=== PATIENT | male | born 1965 | race Caucasian/White ===

== ENCOUNTER 2017-01-07 09:47 | Emergency (ER) | payer OTHER ==
[~2017-01-07] VITALS: Ht 175.3 cm; Wt 90.9 kg
[2017-01-07 09:53] VITALS: BP 139/83
--- NOTE | 2017-01-07 09:58 | NUR ---
Patient ambulated to bed 3. RN evaluating patient at bedside.
--- NOTE | 2017-01-07 10:04 | NUR ---
51 YO MALE C/O POSSIBLE BUG BITES POST GERDENING ON LEFT HAND, WOUNDS ARE OPEN ON LT 5TH, 3RD AND 1ST DIGIT, SWELLING SEEN. PT STATES THERE HAS BEEN SOME PUS DICHARGE FROM 5TH DIGIT, PAIN TO LT HAND IS 7/10, ALSO HAS RASH ON LT UPPER ARM WITH ITCHING X2D.
--- NOTE | 2017-01-07 10:52 | NUR ---
Dr. Chen evaluating patient at bedside.
[2017-01-07 11:03] VITALS: BP 126/85
--- NOTE | 2017-01-07 11:04 | NUR ---
Patient discharged with v/s stable. Written and verbal after care instructions given and explained. Patient alert, oriented and verbalized understanding of instructions. Ambulatory with steady gait. All questions addressed prior to discharge. ID band removed. Patient advised to follow up with PMD. Rx of BACTRIM, KEFLEX, MOTRIN given. Patient educated on indication of medication including possible reaction and side effects. Opportunity to ask questions provided and answered.
== END 2017-01-07 11:04 | disposition home or self-care (01) ==
LOC: MED 09:47
DX: L03.012 Cellulitis of left finger (principal)
CPT/HCPCS: 99283

== ENCOUNTER 2017-09-22 11:29 | Emergency (ER) | payer OTHER ==
[~2017-09-22] VITALS: Ht 175.3 cm; Wt 72.6 kg
[2017-09-22 11:37] VITALS: BP 123/65
--- NOTE | 2017-09-22 11:41 | NUR ---
PT AMBULATED TO ER CHAIR C
--- NOTE | 2017-09-22 11:42 | NUR ---
PT TRANSFERRED TO ER BED 01 Addendum: 09/22/17 at 1143 by MARA PT TRANSFERRED TO ER BED 03
--- NOTE | 2017-09-22 11:45 | NUR ---
52y/ m bib self c/o left upper leg numbness/ tingling/ pain x 1 day. patient denies any recent injury. ER MD MADE AWARE OF PT STATUS.
[2017-09-22 11:51] VITALS: BP 123/65
--- NOTE | 2017-09-22 11:51 | NUR ---
Patient discharged with v/s stable. Written and verbal after care instructions given and explained. Patient alert, oriented and verbalized understanding of instructions. with steady gait. All questions addressed prior to discharge. ID band removed. Patient advised to follow up with PMD. Rx of benadryl, bactrium ds given. Patient educated on indication of medication including possible reaction and side effects. Opportunity to ask questions provided and answered.
== END 2017-09-22 11:51 | disposition home or self-care (01) ==
LOC: MED 11:29
DX: S30.860A Insect bite (nonvenomous) of lower back and pelvis, initial encounter (principal); W57.XXXA Bitten or stung by nonvenomous insect and other nonvenomous arthropods, initial encounter; Y93.55 Activity, bike riding; Y92.89 Other specified places as the place of occurrence of the external cause; Y99.8 Other external cause status
CPT/HCPCS: 99283